=== PATIENT | female | born 1945 | race Asian ===

== ENCOUNTER 2018-09-04 17:21 | Inpatient (IN) | payer OTHER ==
[2018-09-04 17:56] LABS: ADD MAN DIFF? NO
[2018-09-04 18:00] LABS: BASOPHIL # 0.1 10^3/ul (0.0-0.1); BASOPHILS % 0.4 % (0.0-2.0); EOSINOPHILS # 0.4 10^3/ul (0.0-0.5); EOSINOPHILS % 3.6 % (0.0-7.0); HEMATOCRIT 36.2 % (37.0-47.0); HEMOGLOBIN 11.9 g/dl (12.0-16.0); LYMPHOCYTES # 2.4 10^3/ul (0.8-2.9); LYMPHOCYTES % 20.1 % (15.0-51.0); MEAN CORPUSCULAR HEMOGLOBIN 29.8 pg (29.0-33.0); MEAN CORPUSCULAR HGB CONC 32.9 g/dl (32.0-37.0); MEAN CORPUSCULAR VOLUME 90.7 fl (82.0-101.0); MEAN PLATELET VOLUME 9.3 fl (7.4-10.4); MONOCYTE # 0.6 10^3/ul (0.3-0.9); MONOCYTES % 5.3 % (0.0-11.0); NEUTROPHIL # 8.4 10^3/ul (1.6-7.5); PLATELET COUNT 226 10^3/UL (140-415); RED BLOOD COUNT 3.99 10^6/ul (4.20-5.40); RED CELL DISTRIBUTION WIDTH 12.4 % (11.5-14.5)
[2018-09-04 18:19] LABS: ALANINE AMINOTRANSFERASE 24 IU/L (13-69); ALBUMIN 4.2 g/dl (3.3-4.9); ALBUMIN/GLOBULIN RATIO 1.27; ALKALINE PHOSPHATASE 52 IU/L (42-121); ANION GAP 10 (5-13); ASPARTATE AMINO TRANSFERASE 33 IU/L (15-46); BILIRUBIN,INDIRECT 0.3 mg/dl (0-1.1); BILIRUBIN,TOTAL 0.3 mg/dl (0.2-1.3); BLOOD UREA NITROGEN 30 mg/dl (7-20); CALCIUM 9.6 mg/dl (8.4-10.2); CARBON DIOXIDE 25 mmol/L (21-31); CHLORIDE 110 mmol/L (97-110); CREATININE 1.72 mg/dl (0.44-1.00); POTASSIUM 3.9 mmol/L (3.5-5.1); SODIUM 145 mmol/L (135-144); TOTAL PROTEIN 7.5 g/dl (6.1-8.1)
[2018-09-04 18:20] LABS: INR 0.89; PROTIME 12.1 Sec (11.9-14.9); PT RATIO 0.9
[2018-09-04 18:20] LABS: LACTIC ACID 0.8 mmol/L (0.5-2.0)
[2018-09-04 18:21] LABS: PARTIAL THROMBOPLASTIN TIME 29.1 Sec (23.0-35.0)
[2018-09-04 18:23] LABS: GLUCOSE 38 mg/dl (70-220)
[2018-09-04] MEDS ORDERED: DEXTROSE 50% 50 ML SYRINGE (18:27)
[2018-09-04] MEDS: DEXTROSE 50% 50 ML SYRINGE IV (18:29)
[2018-09-04 18:30] LABS: TROPONIN-I < 0.012 ng/ml (0.000-0.120)
[2018-09-04 19:05] LABS: URINE BLOOD (Dip) POC Trace-intact (NEGATIVE); URINE KETONES (Dip) POC Negative (NEGATIVE); URINE LEUKOCYTE EST (Dip) POC Trace (NEGATIVE); URINE NITRITE (Dip) POC Negative (NEGATIVE); URINE TOTAL PROTEIN POC 2+ (NEGATIVE)
[2018-09-04 19:25] LABS: UR RBC 3 /HPF (0-5); UR SQUAMOUS EPITHELIAL CELL FEW /HPF (FEW); UR WBC 5 /HPF (0-5)
[2018-09-04 19:33] LABS: ADD UMIC YES; UR ASCORBIC ACID 40 mg/dL (NEGATIVE); UR BACTERIA FEW /HPF (NONE SEEN); UR BILIRUBIN (Dip) NEGATIVE (NEGATIVE); UR BLOOD (Dip) NEGATIVE (NEGATIVE); UR CLARITY CLEAR (CLEAR); UR COLOR STRAW (YELLOW); UR GLUCOSE (Dip) 3+ mg/dL (NEGATIVE); UR KETONES (Dip) NEGATIVE (NEGATIVE); UR LEUKOCYTE ESTERASE (Dip) NEGATIVE Leu/ul (NEGATIVE); UR NITRITE (Dip) NEGATIVE (NEGATIVE); UR SPECIFIC GRAVITY (Dip) 1.009 (1.003-1.030); UR TOTAL PROTEIN (Dip) 1+ mg/dl (NEGATIVE); UR UROBILINOGEN (Dip) NEGATIVE (NEGATIVE)
[2018-09-04] MEDS: SOD CHLORIDE 0.9% 1,000 ML IV (20:18)
[2018-09-04] MEDS ORDERED: ACETAMINOPHEN 325 MG TAB PO (23:00)
[2018-09-04] MEDS ORDERED: GLUCOSE GEL 15 GRAM TUBE PO ×2 (23:00)
[2018-09-04] MEDS ORDERED: GLUCAGON 1 MG INJ IM (23:00)
[2018-09-04] MEDS ORDERED: GLUCOSE GEL 15 GRAM TUBE BUCCAL (23:00)
[2018-09-04] MEDS ORDERED: DEXTROSE 50% 50 ML SYRINGE IV (23:00)
[2018-09-04] MEDS ORDERED: ONDANSETRON (ODT) 4 MG TAB ODT (23:00)
[2018-09-05] MEDS: ATORVASTATIN 20 MG TAB PO ×2 (00:04→21:19)
[2018-09-05] MEDS: COLESEVELAM 625 MG TAB PO ×3 (00:04→21:19)
[2018-09-05] MEDS: INSULIN ASPART [NOVOLOG] 3 ML PEN SC ×4 (00:08→21:00)
[2018-09-05] MEDS: INSULIN GLARGINE [LANTus] (100 UNITS/ML) SYG SC ×2 (00:08→21:31)
[2018-09-05] MEDS: ACCU-CHEK XX (02:39)
[2018-09-05 05:35] LABS: ADD MAN DIFF? NO
[2018-09-05 05:41] LABS: BASOPHILS % 0.3 % (0.0-2.0); EOSINOPHILS # 0.4 10^3/ul (0.0-0.5); EOSINOPHILS % 4.6 % (0.0-7.0); HEMATOCRIT 32.5 % (37.0-47.0); HEMOGLOBIN 10.6 g/dl (12.0-16.0); LYMPHOCYTES # 2.7 10^3/ul (0.8-2.9); LYMPHOCYTES % 30.4 % (15.0-51.0); MEAN CORPUSCULAR HEMOGLOBIN 29.7 pg (29.0-33.0); MEAN CORPUSCULAR HGB CONC 32.6 g/dl (32.0-37.0); MEAN PLATELET VOLUME 9.7 fl (7.4-10.4); MONOCYTE # 0.7 10^3/ul (0.3-0.9); NEUTROPHILS % 56.4 % (39.0-77.0); PLATELET COUNT 202 10^3/UL (140-415); RED BLOOD COUNT 3.57 10^6/ul (4.20-5.40); RED CELL DISTRIBUTION WIDTH 12.5 % (11.5-14.5)
[2018-09-05 05:41] LABS: WHITE BLOOD COUNT 8.8 10^3/ul (4.8-10.8)
[2018-09-05 05:57] LABS: ALANINE AMINOTRANSFERASE 22 IU/L (13-69); ALBUMIN 3.3 g/dl (3.3-4.9); ALBUMIN/GLOBULIN RATIO 1.17; ALKALINE PHOSPHATASE 43 IU/L (42-121); ANION GAP 7 (5-13); ASPARTATE AMINO TRANSFERASE 29 IU/L (15-46); BILIRUBIN,INDIRECT 0.3 mg/dl (0-1.1); BILIRUBIN,TOTAL 0.3 mg/dl (0.2-1.3); BLOOD UREA NITROGEN 33 mg/dl (7-20); CARBON DIOXIDE 24 mmol/L (21-31); CHLORIDE 113 mmol/L (97-110); CHOL/HDL RATIO 2.2 RATIO; CHOLESTEROL 92 mg/dl (100-200); CREATININE 1.64 mg/dl (0.44-1.00); HDL CHOLESTEROL 41 mg/dl (33-92); LDL CHOLESTEROL,CALCULATED 20 mg/dl; POTASSIUM 3.8 mmol/L (3.5-5.1); SODIUM 144 mmol/L (135-144); TOTAL PROTEIN 6.1 g/dl (6.1-8.1); TRIGLYCERIDES 156 mg/dl (0-149)
[2018-09-05 06:04] LABS: GLUCOSE 49 mg/dl (70-220)
[2018-09-05] MEDS: DEXTROSE 50% 50 ML SYRINGE IV (06:11)
[2018-09-05 06:22] LABS: HEMOGLOBIN A1C 5.6 % (0-5.9)
[2018-09-05] MEDS ORDERED: glipiZIDE 10 MG TAB PO (07:00)
[2018-09-05] MEDS: ACARBOSE 50 MG TAB PO ×3 (08:17→17:16)
[2018-09-05] MEDS: FENOFIBRATE 145 MG TAB PO (08:24)
[2018-09-05] MEDS: ASPIRIN (EC) 81 MG TAB PO (08:24)
[2018-09-05] MEDS: ALLOPURINOL 100 MG TAB PO (08:24)
[2018-09-05] MEDS: LINAGLIPTIN 5 MG TABLET PO (08:26)
[2018-09-05] MEDS: ATENOLOL 50 MG TAB PO (08:26)
[2018-09-05] MEDS: BENAZEPRIL 10 MG TAB PO (08:27)
[2018-09-05] MEDS ORDERED: NON-FORMULARY/PATIENT OWN MED (Fenofibrate, Micronized (Fenofibrate) 134 MG) PO (09:00)
[2018-09-05] MEDS ORDERED: SPECIAL NON-STANDARD MEDICATION PO (09:00)
[2018-09-06] MEDS: ACCU-CHEK XX (02:00)
[2018-09-06 05:17] LABS: ADD MAN DIFF? NO
[2018-09-06 05:21] LABS: BASOPHILS % 0.4 % (0.0-2.0); EOSINOPHILS # 0.5 10^3/ul (0.0-0.5); EOSINOPHILS % 6.1 % (0.0-7.0); HEMATOCRIT 33.6 % (37.0-47.0); HEMOGLOBIN 10.9 g/dl (12.0-16.0); LYMPHOCYTES # 3.2 10^3/ul (0.8-2.9); LYMPHOCYTES % 42.6 % (15.0-51.0); MEAN CORPUSCULAR HEMOGLOBIN 29.5 pg (29.0-33.0); MEAN CORPUSCULAR HGB CONC 32.4 g/dl (32.0-37.0); MEAN CORPUSCULAR VOLUME 90.8 fl (82.0-101.0); MEAN PLATELET VOLUME 9.7 fl (7.4-10.4); MONOCYTE # 0.7 10^3/ul (0.3-0.9); MONOCYTES % 9.3 % (0.0-11.0); NEUTROPHIL # 3.1 10^3/ul (1.6-7.5); NEUTROPHILS % 41.5 % (39.0-77.0); PLATELET COUNT 205 10^3/UL (140-415); RED CELL DISTRIBUTION WIDTH 12.4 % (11.5-14.5)
[2018-09-06 05:21] LABS: WHITE BLOOD COUNT 7.4 10^3/ul (4.8-10.8)
[2018-09-06 05:36] LABS: ANION GAP 7 (5-13); BLOOD UREA NITROGEN 41 mg/dl (7-20); CALCIUM 9.1 mg/dl (8.4-10.2); CARBON DIOXIDE 22 mmol/L (21-31); CHLORIDE 111 mmol/L (97-110); CREATININE 1.92 mg/dl (0.44-1.00); GLUCOSE 94 mg/dl (70-220); SODIUM 140 mmol/L (135-144)
[2018-09-06] MEDS: INSULIN ASPART [NOVOLOG] 3 ML PEN SC ×4 (07:47→21:00)
[2018-09-06] MEDS: ACARBOSE 50 MG TAB PO ×3 (08:00→17:30)
[2018-09-06] MEDS: ALLOPURINOL 100 MG TAB PO (08:22)
[2018-09-06] MEDS: ASPIRIN (EC) 81 MG TAB PO (08:22)
[2018-09-06] MEDS: COLESEVELAM 625 MG TAB PO ×2 (08:22→21:16)
[2018-09-06] MEDS: FENOFIBRATE 145 MG TAB PO (08:22)
[2018-09-06] MEDS: BENAZEPRIL 10 MG TAB PO (08:23)
[2018-09-06] MEDS: ATENOLOL 50 MG TAB PO (08:24)
[2018-09-06] MEDS: LINAGLIPTIN 5 MG TABLET PO (08:27)
[2018-09-06] MEDS: SOD CHLORIDE 0.9% 1,000 ML IV (16:26)
[2018-09-06] MEDS: ATORVASTATIN 20 MG TAB PO (21:14)
[2018-09-06] MEDS: INSULIN GLARGINE [LANTus] (100 UNITS/ML) SYG SC (21:48)
[2018-09-07] MEDS: ACCU-CHEK XX (02:00)
[2018-09-07] MEDS: INSULIN ASPART [NOVOLOG] 3 ML PEN SC ×4 (07:39→20:31)
[2018-09-07] MEDS: ACARBOSE 50 MG TAB PO ×3 (08:16→16:59)
[2018-09-07] MEDS: LINAGLIPTIN 5 MG TABLET PO (08:16)
[2018-09-07] MEDS: COLESEVELAM 625 MG TAB PO ×2 (08:17→20:31)
[2018-09-07] MEDS: FENOFIBRATE 145 MG TAB PO (08:17)
[2018-09-07] MEDS: ALLOPURINOL 100 MG TAB PO (08:17)
[2018-09-07] MEDS: ASPIRIN (EC) 81 MG TAB PO (08:17)
[2018-09-07] MEDS: ATENOLOL 50 MG TAB PO (08:18)
[2018-09-07] MEDS: BENAZEPRIL 10 MG TAB PO (08:18)
[2018-09-07] MEDS: ATORVASTATIN 20 MG TAB PO (20:31)
[2018-09-08] MEDS: ACCU-CHEK XX (02:00)
[2018-09-08] MEDS: INSULIN ASPART [NOVOLOG] 3 ML PEN SC ×2 (07:53→12:00)
[2018-09-08] MEDS: FENOFIBRATE 145 MG TAB PO (08:23)
[2018-09-08] MEDS: COLESEVELAM 625 MG TAB PO (08:23)
[2018-09-08] MEDS: ATENOLOL 50 MG TAB PO (08:24)
[2018-09-08] MEDS: ACARBOSE 50 MG TAB PO ×2 (08:24→13:05)
[2018-09-08] MEDS: LINAGLIPTIN 5 MG TABLET PO (08:24)
[2018-09-08] MEDS: ASPIRIN (EC) 81 MG TAB PO (08:25)
[2018-09-08] MEDS: BENAZEPRIL 10 MG TAB PO (08:25)
[2018-09-08] MEDS: ALLOPURINOL 100 MG TAB PO (08:25)
[2018-09-08 12:27] LABS: ANION GAP 9 (5-13); BLOOD UREA NITROGEN 55 mg/dl (7-20); CALCIUM 9.4 mg/dl (8.4-10.2); CARBON DIOXIDE 25 mmol/L (21-31); CHLORIDE 109 mmol/L (97-110); CREATININE 1.69 mg/dl (0.44-1.00); GLUCOSE 126 mg/dl (70-220); SODIUM 143 mmol/L (135-144)
== END 2018-09-08 14:21 | disposition home or self-care (01) | DRG 639 ==
LOC: E/R 17:21 → 6WM 19:51
DX: E11.649 Type 2 diabetes mellitus with hypoglycemia without coma (principal); E78.5 Hyperlipidemia, unspecified; I12.9 Hypertensive chronic kidney disease with stage 1 through stage 4 chronic kidney disease, or unspecified chronic kidney disease; N18.9 Chronic kidney disease, unspecified; D64.9 Anemia, unspecified; Z79.4 Long term (current) use of insulin; Z85.3 Personal history of malignant neoplasm of breast; Z79.811 Long term (current) use of aromatase inhibitors; E86.0 Dehydration; Z72.0 Tobacco use
CPT/HCPCS: 36415; 70450; 71045; 80048; 80053; 80061; 81001; 81003; 82962; 83036; 83605; 84484; 85025; 85610; 85730; 87040; 87086; 93005; 96374; 99285-25; G0378